=== PATIENT | female | born 2005 | race Two or more races ===

== ENCOUNTER 2024-10-11 13:07 | Emergency (ER) | payer MEDICAID, SELFPAY ==
[2024-10-11 13:08] VITALS: BMI 43.9
[2024-10-11 13:15] VITALS: BP 151/95; PULSE 109; RESP 20; TEMP 37.3; O2SAT 99
--- NOTE | 2024-10-11 13:22 | XR_ITS ---
Examination: Complete OB ultrasound greater than 14 weeks Date and time of exam: October 11, 2024 1339 hours INDICATIONS: No movement noticed beginning 2 days ago Findings: Viable intrauterine single fetus with single amniotic sac presentation breech spine maternal right Cardiac motion 1:30 BPM Placenta posterior grade 1 Umbilical cord insertion seen Amniotic fluid index 10.5 cm Ovaries obscured by bowel gas. Composite estimated gestational age based on BPD, head circumference, abdominal circumference, femur length is 16 weeks 5 days Estimated weight 164 g. Survey of intracranial anatomy, spinal anatomy, abdominal anatomy, four-chamber heart performed with no abnormalities identified. Impression: Viable intrauterine gestation breech presentation.
--- NOTE | 2024-10-11 13:23 | EDNOTE_ITS ---
<Statement entered by Ana Vega MD - 10/18/24 12:00> As co-signing physician, I was present and available for consult prn. I concur with the plan and care as documented by the midlevel provider. ED OB Contraction Preg RMI/HPI General Chief complaint: OB/Uterine Contractions Stated complaint: 17wks preg I havent felt my baby move Time Seen by Provider: 10/11/24 13:23 Source: patient Arrival date/time: 10/11/24 13:07 19-year-old female with no known medical history presents to the emergency room with a chief complaint of nausea feeling her baby move. Patient is currently 17 weeks she is a G1, P0. Mode of arrival: ambulatory Limitations: no limitations Related Data Previous Rx's ?Medication ?Instructions ?Recorded albuterol sulfate 90 mcg/actuation 2 puff inhalation QID #18 grams 11/13/19 aerosol inhaler cetirizine 10 mg tablet (Zyrtec) 10 mg PO QDAY #30 tabs 11/13/19 ibuprofen 600 mg tablet 600 mg PO QID #30 tabs 11/13/19 Allergies Allergy/AdvReac Type Severity Reaction Status Date / Time No Known Allergies Allergy Verified 10/11/24 13:11 Review of Systems Review of Systems Systems Reviewed: All systems reviewed, normal except as documented Constitutional Constitutional: Reports system reviewed and no additional complaints, except as documented, Denies fatigue, Denies fever(s), Denies headache(s) and Denies weakness Eyes Eyes: Reports system reviewed and no additional complaints, except as documented, Denies blurry vision and Denies change in vision ENT Ears, Nose, Mouth, and Throat: Reports system reviewed and no additional complaints, except as documented, Denies otalgia, Denies headache(s), Denies nasal congestion, Denies throat swelling and Denies vertigo Cardiovascular Cardiovascular: Reports system reviewed and no additional complaints, except as documented, Denies chest pain, Denies dyspnea and Denies dyspnea on exertion Respiratory Respiratory: Reports system reviewed and no additional complaints, except as documented, Denies chest congestion, Denies cough, Denies dyspnea, Denies dyspnea on exertion and Denies wheezing Gastrointestinal Gastrointestinal: Reports system reviewed and no additional complaints, except as documented, Denies abdominal pain, Denies cramping, Reports nausea and Denies vomiting Genitourinary Genitourinary: Reports system reviewed and no additional complaints, except as documented Musculoskeletal Musculoskeletal: Reports system reviewed and no additional complaints, except as documented and Denies back pain Integumentary/Breasts Skin/Breast: Reports system reviewed and no additional complaints, except as documented and Denies wounds Neurologic Neurologic: Reports system reviewed and no additional complaints, except as documented, Denies confusion, Denies headache(s), Denies lack of coordination, Denies vertigo and Denies weakness Psychiatric Psychiatric: Reports system reviewed and no additional complaints, except as documented, Denies anxiety, Denies confusion, Denies depression, Denies paranoia, Denies suicidal ideation and Denies tactile hallucinations Endocrine Endocrine: Reports system reviewed and no additional complaints, except as documented and Denies fatigue Hematologic/Lymphatic Hematologic/Lymphatic: Reports system reviewed and no additional complaints, except as documented and Denies lymphadenopathy Allergic/Immunologic Allergic/Immunologic: Reports system reviewed and no additional complaints, except as documented, Denies throat swelling, Denies urticaria and Denies wheezing Past Medical History Past Medical History CARDIAC: Negative Congestive Heart Failure RESPIRATORY: Negative Chronic Obstructive Pulmonary Disease (COPD) GENITOURINARY: Negative Renal Disease ENDOCRINE: Negative Diabetes Mellitus Type 1 or Diabetes Mellitus Type 2 Social History SMOKING STATUS: Never smoker ED Exam General Limitations: Present no limitations General appearance: Present alert and in no apparent distress Head Head exam: Present atraumatic Eye Eye exam: Present normal appearance, PERRL and EOMI ENT ENT exam: Present normal exam, normal oropharynx and mucous membranes moist Neck Neck exam: Present normal inspection, full ROM and trachea midline Chest Chest inspection: Present normal inspection and symmetric chest wall rise Respiratory Respiratory exam: Present normal lung sounds bilaterally Cardiovascular Cardiovascular exam: Present regular rate, normal rhythm and normal heart sounds Abdominal Exam Abdominal exam: Present soft and normal bowel sounds Extremities Exam Extremities exam: Present normal inspection and full ROM Back Exam Back exam: Present normal inspection and full ROM Neurological Exam Neurological exam: Present alert, oriented X3 and CN II-XII intact Psychiatric Psychiatric exam: Present normal affect and normal mood Skin Skin exam: Present warm, dry, intact and normal color Course Quality Measures none Orders Category Date Time Status US OB >= 14 weeks Fetus Stat Exams 10/11/24 13:22 Completed ABO/RH Type Stat Lab 10/11/24 14:43 Completed Beta HCG,Quantitative Stat Lab 10/11/24 14:43 Completed CBC Stat Lab 10/11/24 14:43 Completed CMP [Comprehensive Metabolic Panel] Stat Lab 10/11/24 14:43 Completed UA [Urinalysis] Stat Lab 10/11/24 13:35 Completed Vital Signs Vital signs: Vital Signs Temperature 99.1 F 10/11/24 13:15 Pulse Rate 109 H 10/11/24 13:15 Respiratory Rate 20 10/11/24 13:15 Blood Pressure 151/95 H 10/11/24 13:15 Pulse Oximetry (%) 99 10/11/24 13:15 Oxygen Delivery Method Room Air 10/11/24 13:15 O2 saturation 99% within normal limits OB/Uterine Contractions MDM Narrative MDM Narrative:: 19-year-old female with no known medical history presents to the emergency room with a chief complaint of nausea feeling her baby move. Patient is currently 17 weeks she is a G1, P0. Clinically the patient appears nontoxic and in no apparent distress. Physical examination shows a soft nontender abdomen. Patient denies any vaginal bleeding or any abdominal pain or tenderness and states she is just here because she has been unable to feel her baby move. Ultrasound was completed and shows heart tones are 130 bpm and a viable intrauterine gestation with breech presentation. CBC and CMP were completed and were within normal limits patient was educated to follow-up with [facility] and return to the emergency room for any evidence of worsening signs or symptoms Patient data External records reviewed:: [facility] previous records Clinical information provided by:: patient Social determinants that could affect healthcare access:: none Patient has the following chronic illnesses:: No chronic illness How is presenting disease/condition affected by chronic disease/condition?: no chronic disease Evaluation data The following diagnostics were reviewed and interpreted by me:: lab results and radiology exam(s) Lab and/or radiology exams considered but not ordered:: Labs and radiology exams considered in order Interpretation Summary: OB ultrasound-Findings: Viable intrauterine single fetus with single amniotic sac presentation breech spine maternal right Cardiac motion 1:30 BPM Placenta posterior grade 1 Umbilical cord insertion seen Amniotic fluid index 10.5 cm Ovaries obscured by bowel gas. Composite estimated gestational age based on BPD, head circumference, abdominal circumference, femur length is 16 weeks 5 days Estimated weight 164 g. Survey of intracranial anatomy, spinal anatomy, abdominal anatomy, four-chamber heart performed with no abnormalities identified. Impression: Viable intrauterine gestation breech presentation. Medications / Prescriptions Medications or Prescriptions considered but not ordered:: Medication not given Medication administrations:: Medication not given Consultations Consultation(s) initiated? (list below): No Diagnosis OB Contractions Differential Diagnosis: -induced hypertension, pre- eclampsia, eclampsia and other ( related condition of her trimester) Most likely diagnosis given after review of the tests above:: related condition first trimester Admission Indicated Admission indicated?: not indicated Explain why admission is indicated or not indicated:: N/A Admission Request Was there a request for admission?: No Disposition Plan Disposition Plan: Discharge Discharge Attestation Discharge Attestation: The patient and all family members were given an opportunity to ask questions and understood the discharge instructions. Discharge instructions specifically effects, indications for sooner follow up or return to the emergency department, and the expected course of current diagnosis. Patient condition: Stable Discharge Plan Plan Patient Disposition: HOME (Self Care) Disposition Comment: Stable Prescriptions/Referrals Prescriptions/Med Rec: No Action albuterol sulfate 90 mcg/actuation HFA aerosol inhaler 2 puff INH QID Qty: 18 0RF ibuprofen 600 mg tablet 600 mg PO QID Qty: 30 0RF cetirizine [Zyrtec] 10 mg tablet 10 mg PO QDAY Qty: 30 0RF Referrals: Yuval Ortega MD [Primary Care Provider] - In 1 week Problem List Clinical Impression: related condition in first trimester Patient/Caregiver Discharge Instructions Education Materials: Your First Trimester ..., First Trimester Additional Instructions: Please follow-up with your [facility] in the next 24 to 48 hours. Ultrasound was completed and does show a viable with heart tones at 130 bpm. For any evidence of worsening signs or symptoms please return to the emergency room immediately Print Language: Bulgarian Stand Alone Forms: [facility] Award Info., Patient Portal Info Letter PA/MARLA Supervising Physician PA/MARLA Supervising Physician: Dr. VEGA
[2024-10-11 13:42] LABS: Collection Type, Urine Clean Catch
[2024-10-11 13:56] LABS: Amorphous Crystals,Urine Present (Absent); Bacteria,Urine Rare; Bilirubin,Urine Negative (Negative); Blood,Urine Negative (Negative); Color,Urine Lt-Yellow (Lt Yel-Yel); Glucose, Urine Negative (Negative); Ketones,Urine Negative (Negative); Leukocyte Esterase,Urine Positive (Negative); Nitrite,Urine Negative (Negative); Protein,Urine Trace (Neg - Trace); RBC,Urine 2 /hpf (0-3); Specific Gravity,Urine 1.021 (1.001-1.035); Squamous Epithelial Cell,Urine 9 /hpf (0-5); Urobilinogen,Urine Negative mg/dL (0.0-1.0); WBC,Urine 10 /hpf (0-5)
[2024-10-11 13:57] LABS: Clarity,Urine Hazy (Clear/Hazy)
[2024-10-11 15:13] LABS: Basophils % (Auto) 0 % (0-2.5); Eosinophils % (Auto) 0 % (0-10); Hematocrit 36.3 % (36.0-46.0); Hemoglobin 12.3 g/dL (12.0-16.0); Immature Granulocytes % (Auto) 0 % (0-0); Immature Granulocytes Auto 0.03 Thou/mm3 (0.00-0.00); Lymphocytes # (Auto) 2.2 Thou/mm3 (1.0-4.8); Lymphocytes % (Auto) 24 % (10-50); Mean Corpuscular HGB Conc 33.9 g/dl (31.0-37.0); Mean Corpuscular Hemoglobin 28.4 pg (25.0-35.0); Mean Corpuscular Volume 84 fL (80-100); Monocytes # (Auto) 0.6 Thou/mm3 (0.0-0.8); Monocytes % (Auto) 6 % (0-12); Neutrophils # (Auto) 6.6 Thou/mm3 (1.8-7.7); Neutrophils % (Auto) 70 % (37-80); Nucleated Red Blood Cell % 0 /100 WBC (0); Platelet Count 208 Thou/mm3 (140-440); RDW Standard Deviation 40.6 fL (36.4-46.3); Red Blood Count 4.33 Miln/mm3 (4.00-5.20); White Blood Count 9.4 Thou/mm3 (3.6-11.0)
[2024-10-11 15:49] LABS: Alanine Aminotransferase 14 U/L (10-49); Albumin, Serum 4.4 gm/dL (3.5-5.0); Albumin/Globulin Ratio 1.9 (1.2-2.2); Alkaline Phosphatase 55 U/L (46-116); Anion Gap 10 (7-16); Aspartate Amino Transferase 11 U/L (0-34); BUN/Creatinine Ratio 12 Ratio (12-20); Bilirubin,Total 0.3 mg/dL (0.3-1.2); Blood Urea Nitrogen 7 mg/dL (9-23); Calcium 9.5 mg/dL (8.3-10.6); Calcium (Corrected) 9.5 mg/dL (8.5-10.1); Carbon Dioxide 22.4 mMol/L (20.0-31.0); Chloride 104 mMol/L (98-107); Creatinine (Component) 0.6 mg/dL (0.6-1.3); Estimated Creatinine Clearance 172.3 mL/min (>60); Globulin 2.3 gm/dL (2.3-3.5); Glucose 86 mg/dL (74-106); Osmolality,Calculated 268 (275-295); Potassium 3.6 mMol/L (3.4-5.1); Sodium 136 mMol/L (136-145); Total Protein 6.7 gm/dL (5.7-8.2); eGFR > 60 See Note
[2024-10-11 16:21] LABS: Beta HCG,Quantitative 47240 mIU/mL (<5.0)
== END 2024-10-11 17:39 | disposition home or self-care (01) ==
PROVIDERS: Nurse Practitioner Family; Emergency Provider Emergency Medicine; PCP Family Medicine
DX: O36.8130 Decreased fetal movements, third trimester, not applicable or unspecified (principal); Z3A.17 17 weeks gestation of pregnancy
CPT/HCPCS: 36415; 76805; 80053; 81001; 84702; 85025; 86900; 86901; 99284